=== PATIENT | male | born 1930 | race Caucasian/White ===

== ENCOUNTER 2017-08-26 14:35 | Outpatient (CLI) | payer OTHER ==
[~2017-08-26 14:35] MED LIST: MOTRIN IB200 MG PO; NEURONTIN300 MG PO; NORVASC10 MG PO; ORPH100T PO; OXYC1TAB9 PO; PNEU16DI2 IJ; POLY119PG PO; SURFAK240 MG PO; ULTRACET PO; XANAX1 MG PO; XARELTO10 MG PO
== END 2017-08-26 14:45 | disposition home or self-care (01) ==
LOC: RAD 501 14:35
DX: S70.01XA Contusion of right hip, initial encounter (principal)

== ENCOUNTER 2017-08-26 15:51 | Inpatient (IN) | payer OTHER ==
[~2017-08-26] VITALS: Ht 167.6 cm; Wt 68.0 kg
== END 2017-08-30 13:22 | DRG 470 ==
LOC: ER 15:51 → SURH 19:17 → SEC-K 19:17 → SURH 21:18
PROVIDERS: Orthopaedic Surgery
PROC: 0QR40JZ Replacement of Right Acetabulum with Synthetic Substitute, Open Approach (ICD-10-PCS; 2017-08-27)
PROC: 0QQ60ZZ Repair Right Upper Femur, Open Approach (ICD-10-PCS; 2017-08-27)
PROC: 0LX Tendons, Transfer (ICD-10-PCS; 2017-08-27)
PROC: 0QS604Z Reposition Right Upper Femur with Internal Fixation Device, Open Approach (ICD-10-PCS; 2017-08-27)
PROC: 0QR Lower Bones, Replacement (ICD-10-PCS; 2017-08-27)
PROC: 0SRR0JZ Replacement of Right Hip Joint, Femoral Surface with Synthetic Substitute, Open Approach (ICD-10-PCS; principal; 2017-08-27 13:00)
DX: S72.091A Other fracture of head and neck of right femur, initial encounter for closed fracture (principal); D62 Acute posthemorrhagic anemia; S72.111A Displaced fracture of greater trochanter of right femur, initial encounter for closed fracture; M16.11 Unilateral primary osteoarthritis, right hip; W01.0XXA Fall on same level from slipping, tripping and stumbling without subsequent striking against object, initial encounter; Y93.89 Activity, other specified; Y92.098 Other place in other non-institutional residence as the place of occurrence of the external cause; Y99.8 Other external cause status

== ENCOUNTER 2017-10-09 14:37 | Outpatient (CLI) | payer OTHER | END 2017-10-09 16:42 | disposition home or self-care (01) | LOC: RAD 501 14:37 | DX: M25.551 Pain in right hip (principal) ==

== ENCOUNTER 2018-01-07 09:49 | Outpatient (CLI) | payer OTHER ==
[2018-01-07] MEDS ORDERED: LEXAPRO5 MG (11:21)
== END 2018-01-07 10:03 | disposition home or self-care (01) ==
LOC: RAD 501 09:49
DX: Z76.89 Persons encountering health services in other specified circumstances (principal); M25.552 Pain in left hip

== ENCOUNTER 2018-01-07 10:54 | Inpatient (IN) | payer OTHER ==
[~2018-01-07] VITALS: Ht 170.2 cm; Wt 65.8 kg
[2018-01-07] MEDS ORDERED: LEXAPRO5 MG (11:21)
[2018-01-10] MEDS ORDERED: XARELTO10 MG PO ×2 (10:14→10:18)
== END 2018-01-10 13:15 | DRG 470 ==
LOC: ER 10:54 → SEC-K 15:31 → SURH 15:31
PROVIDERS: Orthopaedic Surgery
PROC: 0MBM0ZZ Excision of Left Hip Bursa and Ligament, Open Approach (ICD-10-PCS; 2018-01-07)
PROC: 0SRS0JZ Replacement of Left Hip Joint, Femoral Surface with Synthetic Substitute, Open Approach (ICD-10-PCS; principal; 2018-01-07 17:00)
DX: S72.062A Displaced articular fracture of head of left femur, initial encounter for closed fracture (principal); W01.0XXA Fall on same level from slipping, tripping and stumbling without subsequent striking against object, initial encounter; Y93.89 Activity, other specified; Y92.098 Other place in other non-institutional residence as the place of occurrence of the external cause; Y99.8 Other external cause status; M16.12 Unilateral primary osteoarthritis, left hip; M70.62 Trochanteric bursitis, left hip; I10 Essential (primary) hypertension